=== PATIENT | female | born 1985 | race Caucasian/White ===

== ENCOUNTER → 2016-08-01 | Outpatient (CLI) | payer BC | END | disposition home or self-care (01) | LOC: LAB 07:41 | PROVIDERS: ATTEND Family Medicine Adult Medicine | DX: J06.9 Acute upper respiratory infection, unspecified (principal) | CPT/HCPCS: 87070 ==

== ENCOUNTER → 2016-08-03 | Outpatient (CLI) | payer BC ==
[2016-08-11 04:11] LABS: CHOCOLATE COCOA ALLERGEN < 0.10 kU/L (Class 0); WHEAT ALLERGEN < 0.10 kU/L (Class 0)
== END | disposition home or self-care (01) ==
LOC: LAB 13:09
PROVIDERS: ATTEND Family Medicine Adult Medicine
DX: J06.9 Acute upper respiratory infection, unspecified (principal); T78.40XA Allergy, unspecified, initial encounter
CPT/HCPCS: 86003; 86005

== ENCOUNTER → 2016-11-02 | Outpatient (CLI) | payer BC ==
[2016-11-02 14:16] LABS: EOSINOPHILS % 0.9 % (0.0-5.0); HEMATOCRIT. 41.1 % (36.0-48.0); HEMOGLOBIN. 14.1 g/dL (12.0-16.0); LYMPHOCYTES % 19.9 % (20.0-50.0); MEAN CORPUSCULAR HEMOGLOBIN 30.8 pg (28.0-32.0); MEAN CORPUSCULAR VOLUME 89.8 fL (81.0-99.0); MEAN PLATELET VOLUME 9.8 fl (7.4-10.4); MONOCYTES % 7.2 % (2.0-8.0); PLATELET 242 x1000/uL (130-400); RED BLOOD CELL COUNT 4.58 mill/uL (4.2-5.4); RED CELL DISTRIBUTION WIDTH 13.4 % (11.6-14.6)
[2016-11-02 14:21] LABS: CHLORIDE 101 mEq/L (98-107)
[2016-11-02 14:38] LABS: CARBON DIOXIDE 27 mEq/L (21-32); T4 FREE 1.09 ng/dL (0.76-1.46)
[2016-11-02 15:27] LABS: VITAMIN B12 SERUM 454 pg/mL (211-911)
== END | disposition home or self-care (01) ==
LOC: LAB 13:47
PROVIDERS: ATTEND Family Medicine Adult Medicine
DX: R19.7 Diarrhea, unspecified (principal); R05 Cough; R10.9 Unspecified abdominal pain; R53.83 Other fatigue
CPT/HCPCS: 36415; 80048; 82607; 83735; 84439; 84443; 85025; 85651; 86038

== ENCOUNTER → 2017-01-17 | Outpatient (CLI) | payer BC ==
[2017-01-17 14:15] LABS: HEPATITIS B SURFACE AB 808.5 mIU/mL
[2017-01-19 09:08] LABS: VITAMIN D 25-OH 28.1 ng/mL (30.0-100.0)
[2017-01-22 04:20] LABS: HSV 1 & 2 AB IGM <0.91 Ratio (0.00-0.90)
== END | disposition home or self-care (01) ==
LOC: LAB 08:30
PROVIDERS: ATTEND Family Medicine Adult Medicine
DX: Z20.2 Contact with and (suspected) exposure to infections with a predominantly sexual mode of transmission (principal); R53.83 Other fatigue
CPT/HCPCS: 36415; 82306; 83036; 84443; 86592; 86694; 86695; 86696; 86706; 86803

== ENCOUNTER → 2017-04-16 | Outpatient (CLI) | payer BC ==
[2017-04-16 13:03] LABS: BASOPHILS % 0.9 % (0.0-2.0); EOSINOPHILS % 0.4 % (0.0-5.0); HEMATOCRIT. 40.1 % (36.0-48.0); HEMOGLOBIN. 13.7 g/dL (12.0-16.0); LYMPHOCYTES % 15.6 % (20.0-50.0); MEAN CORPUSCULAR HEMOGLOBIN 30.7 pg (28.0-32.0); MEAN CORPUSCULAR VOLUME 89.7 fL (81.0-99.0); MEAN PLATELET VOLUME 10.6 fl (7.4-10.4); MONOCYTES % 5.6 % (2.0-8.0); NEUTROPHILS % 77.5 % (40.0-76.0); PLATELET 201 x1000/uL (130-400); RED BLOOD CELL COUNT 4.47 mill/uL (4.2-5.4); RED CELL DISTRIBUTION WIDTH 12.9 % (11.6-14.6)
[2017-04-16 13:06] LABS: CLARITY URINE CLOUDY (CLEAR); COLOR URINE YELLOW (YELLOW); KETONES URINE NEGATIVE (NEGATIVE); LEUKOCYTE ESTERASE URINE NEGATIVE (NEGATIVE); NITRITE URINE NEGATIVE (NEGATIVE); OCCULT BLOOD URINE NEGATIVE (NEGATIVE); PH URINE 7.5 (4.5-8.0); PROTEIN URINE NEGATIVE (NEGATIVE); SPECIFIC GRAVITY URINE 1.022 (1.005-1.030); UROBILINOGEN URINE 0.2 E.U./dL (0.2-1.0)
[2017-04-16 14:02] LABS: T4 FREE 1.03 ng/dL (0.76-1.46)
[2017-04-16 14:17] LABS: HEPATITIS B SURFACE ANTIGEN NEGATIVE; RUBELLA IGG 11.8 IU/mL (4.99-10)
[2017-04-17 05:34] LABS: THYROID PEROXIDASE ANTIBODY 15 IU/mL (0-34)
[2017-04-17 09:05] LABS: HBSAG SCREEN Negative (Negative)
[2017-04-19 10:12] LABS: 25-HYDROXY VITAMIN D3 38 ng/mL (.)
[2017-04-19 13:16] LABS: HGB A 97.4 % (96.4-98.8); HGB A2 2.6 % (1.8-3.2); HGB SOLUBILITY Negative (Negative)
== END | disposition home or self-care (01) ==
LOC: LAB 12:10
PROVIDERS: ATTEND Obstetrics & Gynecology Obstetrics
DX: Z34.00 Encounter for supervision of normal first pregnancy, unspecified trimester (principal); Z3A.00 Weeks of gestation of pregnancy not specified
CPT/HCPCS: 36415; 81001; 82306; 82947; 83021; 84439; 85025; 85660; 86376; 86592; 86762; 86803; 86850; 86870; 86900; 87086; 87186; 87340

== ENCOUNTER 2017-05-03 17:54 | Inpatient (IN) | payer BC ==
[~2017-05-03] VITALS: Ht 157.5 cm; Wt 58.5 kg
[2017-05-03] MEDS ORDERED: ZOLPIDEM TARTRATE 5MG TABLET PO PRN (18:15)
[2017-05-03 19:15] VITALS: BP 116/73
[2017-05-03 23:00] VITALS: BP 109/63
[2017-05-04 06:00] VITALS: BP 100/58
[2017-05-04 09:42] VITALS: BP 102/68
== END 2017-05-04 11:45 | disposition home or self-care (01) | DRG 782 ==
LOC: 7EST PP/OB 17:54
PROVIDERS: ADMIT Obstetrics & Gynecology Obstetrics; ATTEND Obstetrics & Gynecology Obstetrics
DX: O46.91 Antepartum hemorrhage, unspecified, first trimester (principal); Z3A.13 13 weeks gestation of pregnancy; Z3A.14 14 weeks gestation of pregnancy
CPT/HCPCS: 76801

== ENCOUNTER 2017-05-28 18:29 | Observation (INO) | payer BC ==
[~2017-05-28] VITALS: Ht 157.5 cm; Wt 58.5 kg
[2017-05-28] MEDS ORDERED: PNV1TABL76 PO (18:44)
[2017-05-28] MEDS: LACTATED RINGERS 1,000 ML IV SCH ×2 (19:16→23:49)
[2017-05-28] MEDS: CEFAZOLIN 2,000 MG in DEXT 5% WATER 100 ML IV SCH (19:55)
[2017-05-28 19:58] LABS: CLARITY URINE CLEAR (CLEAR); COLOR URINE YELLOW (YELLOW); KETONES URINE TRACE (NEGATIVE); LEUKOCYTE ESTERASE URINE NEGATIVE (NEGATIVE); NITRITE URINE NEGATIVE (NEGATIVE); OCCULT BLOOD URINE NEGATIVE (NEGATIVE); PROTEIN URINE NEGATIVE (NEGATIVE); SPECIFIC GRAVITY URINE 1.008 (1.005-1.030); UROBILINOGEN URINE 0.2 E.U./dL (0.2-1.0)
[2017-05-28 21:15] VITALS: BP 125/79
[2017-05-29] VITALS: BP 125/79
[2017-05-29 04:00] VITALS: BP 95/51
[2017-05-29] MEDS: CEFAZOLIN 2,000 MG in DEXT 5% WATER 100 ML IV SCH (04:04)
[2017-05-29 08:02] VITALS: BP 105/67
[2017-05-29 09:21] VITALS: BP 105/67
== END 2017-05-29 09:30 | disposition home or self-care (01) ==
LOC: L&D 18:29 → 7EST PP/OB 21:00
PROVIDERS: ADMIT Obstetrics & Gynecology Obstetrics; ATTEND Obstetrics & Gynecology Obstetrics
DX: O26.892 Other specified pregnancy related conditions, second trimester (principal); R10.30 Lower abdominal pain, unspecified; Z3A.17 17 weeks gestation of pregnancy; Z80.3 Family history of malignant neoplasm of breast
CPT/HCPCS: 76805; 76817; 81003; 96361; 96365; 96375; 99281; G0378; J0690; J7120; 96360; J7060

== ENCOUNTER → 2017-08-09 | Outpatient (CLI) | payer BC ==
[~2017-08-09] MED LIST: PNV1TABL76 PO
== END | disposition home or self-care (01) ==
LOC: LAB 13:04
PROVIDERS: ATTEND Obstetrics & Gynecology Obstetrics
DX: Z34.92 Encounter for supervision of normal pregnancy, unspecified, second trimester (principal); Z3A.27 27 weeks gestation of pregnancy
CPT/HCPCS: 36415; 82947; 82950

== ENCOUNTER 2017-10-01 14:38 | Observation (INO) | payer BC ==
[~2017-10-01] VITALS: Ht 157.5 cm; Wt 66.7 kg
[2017-10-01] MEDS: LACTATED RINGERS 1,000 ML IV SCH ×2 (15:37→16:17)
[2017-10-01 15:49] LABS: CLARITY URINE CLEAR (CLEAR); COLOR URINE YELLOW (YELLOW); KETONES URINE NEGATIVE (NEGATIVE); LEUKOCYTE ESTERASE URINE 1+ (NEGATIVE); NITRITE URINE NEGATIVE (NEGATIVE); OCCULT BLOOD URINE NEGATIVE (NEGATIVE); PH URINE 6.5 (4.5-8.0); PROTEIN URINE NEGATIVE (NEGATIVE); SPECIFIC GRAVITY URINE 1.017 (1.005-1.030); UROBILINOGEN URINE 0.2 E.U./dL (0.2-1.0)
[2017-10-01] MEDS ORDERED: CEFTRIAXONE 1 G PREMIX 50 ML IV NR (17:00)
== END 2017-10-01 18:40 | disposition home or self-care (01) ==
LOC: L&D 14:38
PROVIDERS: ADMIT Obstetrics & Gynecology Obstetrics; ATTEND Obstetrics & Gynecology Obstetrics
DX: O62.9 Abnormality of forces of labor, unspecified (principal); O26.893 Other specified pregnancy related conditions, third trimester; R10.9 Unspecified abdominal pain; Z3A.35 35 weeks gestation of pregnancy
CPT/HCPCS: 76805; 76818; 81003; 87086; 96361; 96365; 99281; G0378; J0696; J7120; 96360

== ENCOUNTER 2017-10-30 06:19 | Inpatient (IN) | payer BC ==
[~2017-10-30] VITALS: Ht 157.5 cm; Wt 73.5 kg
[2017-10-30] MEDS ORDERED: MISOPROSTOL 200MCG TABLET VG SCH (06:45)
[2017-10-30] MEDS ORDERED: NALOXONE HCL 0.4 MG/ML 1ML VIAL IM PRN (06:45)
[2017-10-30] MEDS ORDERED: DEXT 5%/LR + PITOCIN 20UNITS/L 1,000 ML IV SCH ×2 (06:45→09:15)
[2017-10-30] MEDS ORDERED: CARBOPROST TROMETHAMINE 250 MCG/ML AMPUL IM PRN (06:45)
[2017-10-30] MEDS ORDERED: METHYLERGONOVINE MALEATE 0.2 MG/ML IM PRN (06:45)
[2017-10-30 07:08] LABS: BASOPHILS % 0.7 % (0.0-2.0); EOSINOPHILS % 0.8 % (0.0-5.0); HEMATOCRIT. 35.7 % (36.0-48.0); HEMOGLOBIN. 12.2 g/dL (12.0-16.0); LYMPHOCYTES % 19.7 % (20.0-50.0); MEAN CORPUSCULAR HEMOGLOBIN 28.8 pg (28.0-32.0); MEAN CORPUSCULAR VOLUME 84.5 fL (81.0-99.0); MONOCYTES % 7.4 % (2.0-8.0); NEUTROPHILS % 71.4 % (40.0-76.0); PLATELET 124 x1000/uL (130-400); RED BLOOD CELL COUNT 4.22 mill/uL (4.2-5.4); RED CELL DISTRIBUTION WIDTH 15.2 % (11.6-14.6)
[2017-10-30 07:17] LABS: INR 0.9; PARTIAL THROMBOPLASTIN TIME 26.4 sec (23.4-31.0); PROTHROMBIN TIME 9.7 sec (9.4-11.6)
[2017-10-30] MEDS: LACTATED RINGERS 1,000 ML IV SCH ×3 (07:18→21:19)
[2017-10-30 08:12] LABS: CLARITY URINE CLEAR (CLEAR); COLOR URINE YELLOW (YELLOW); KETONES URINE NEGATIVE (NEGATIVE); LEUKOCYTE ESTERASE URINE TRACE (NEGATIVE); NITRITE URINE NEGATIVE (NEGATIVE); OCCULT BLOOD URINE NEGATIVE (NEGATIVE); PH URINE 6.5 (4.5-8.0); PROTEIN URINE NEGATIVE (NEGATIVE); SPECIFIC GRAVITY URINE 1.007 (1.005-1.030); UROBILINOGEN URINE 0.2 E.U./dL (0.2-1.0)
[2017-10-30] MEDS ORDERED: FENTANYL CITRATE/PF 50MCG/ML 2ML VIAL ONE (08:32)
[2017-10-30] MEDS ORDERED: CEFAZOLIN 2000MG PREMIX 50 ML IV ONE (08:32)
[2017-10-30] MEDS ORDERED: PHENYLEPHRINE HCL 10 MG/ML 1ML (IV VIAL) IV ONE (08:32)
[2017-10-30] MEDS ORDERED: MORPHINE SULFATE/PF 1MG/ML 10ML AMP ONE (08:32)
[2017-10-30] MEDS ORDERED: EPHEDRINE SULFATE 50MG/ML VIAL ONE (08:32)
[2017-10-30] MEDS ORDERED: GLYCOPYRROLATE 0.2 MG/ML 2ML VIAL ONE (08:32)
[2017-10-30] MEDS ORDERED: OXYTOCIN 10 UNITS/ML 1ML ONE (08:32)
[2017-10-30] MEDS ORDERED: ONDANSETRON HCL 4MG/2ML VIAL ONE (08:32)
[2017-10-30] MEDS ORDERED: SODIUM CHLORIDE 0.9% 10ML VIAL ONE (08:35)
[2017-10-30] MEDS ORDERED: HYDROCODONE/ACETAMINOPHEN 5/325MG TABLET PO PRN (08:45)
[2017-10-30] MEDS ORDERED: OXYTOCIN 20 UNITS in LACTATED RINGERS 1,000 ML IV SCH (08:45)
[2017-10-30] MEDS ORDERED: CITRIC ACID/SODIUM CITRATE SOLN 30ML UDC PO SCH (09:00)
[2017-10-30 09:07] LABS: *AMPHETAMINES SCREEN URINE NEGATIVE (NEGATIVE); *BARBITURATES SCREEN URINE NEGATIVE (NEGATIVE); *BENZODIAZEPINES SCREEN URINE NEGATIVE (NEGATIVE); *COCAINE SCREEN URINE NEGATIVE (NEGATIVE)
[2017-10-30 09:08] LABS: CANNABINOID URINE SCREEN NEGATIVE (NEGATIVE); METHADONE URINE SCREEN NEGATIVE (NEGATIVE); OPIATES URINE SCREEN NEGATIVE (NEGATIVE); PHENCYCLIDINE URINE SCREEN NEGATIVE (NEGATIVE)
[2017-10-30 09:43] LABS: RUBELLA IGG 9.6 IU/mL (4.99-10)
[2017-10-30 09:44] LABS: HEPATITIS B SURFACE ANTIGEN NEGATIVE
[2017-10-30] MEDS ORDERED: ESMOLOL HCL 10MG/ML 10ML VIAL IV ONE (09:45)
[2017-10-30] MEDS ORDERED: DIPHENHYDRAMINE 50MG/ML VIAL ONE (09:57)
[2017-10-30] MEDS ORDERED: KETOROLAC 60MG/2ML VIAL IM ONE (10:06)
[2017-10-30] MEDS ORDERED: BUTORPHANOL TARTRATE 2 MG/ML VIAL IM PRN (10:45)
[2017-10-30] MEDS ORDERED: DIPHENHYDRAMINE 50MG/ML VIAL IV PRN (10:45)
[2017-10-30] MEDS ORDERED: BUTORPHANOL TARTRATE 2 MG/ML VIAL IV PRN (10:45)
[2017-10-30] MEDS ORDERED: NALOXONE HCL 0.4 MG/ML 1ML VIAL IV PRN (10:45)
[2017-10-30] MEDS ORDERED: ONDANSETRON HCL 4MG/2ML VIAL IV PRN (10:45)
[2017-10-30 13:30] VITALS: BP 104/55
[2017-10-30 14:00] VITALS: BP 100/55
[2017-10-30] MEDS ORDERED: MORPHINE SULFATE 4 MG/ML CPJ (NOT FOR IM USE) IV PRN (17:00)
[2017-10-30 19:56] VITALS: BP 129/77
[2017-10-30] MEDS ORDERED: LANOLIN OINT 0.25 GM TUBE TOP PRN (20:45)
[2017-10-30] MEDS: MORPHINE SULFATE 4 MG/ML CPJ (NOT FOR IM USE) IV PRN (21:07)
[2017-10-31] MEDS: MORPHINE SULFATE 4 MG/ML CPJ (NOT FOR IM USE) IV PRN (04:48)
[2017-10-31] MEDS: LACTATED RINGERS 1,000 ML IV SCH (04:49)
[2017-10-31 05:08] VITALS: BP 115/72
[2017-10-31 07:03] LABS: BASOPHILS % 0.3 % (0.0-2.0); EOSINOPHILS % 0.2 % (0.0-5.0); HEMATOCRIT. 33.9 % (36.0-48.0); HEMOGLOBIN. 11.3 g/dL (12.0-16.0); LYMPHOCYTES % 9.6 % (20.0-50.0); MEAN CORPUSCULAR HEMOGLOBIN 28.7 pg (28.0-32.0); MEAN CORPUSCULAR VOLUME 86.4 fL (81.0-99.0); MEAN PLATELET VOLUME 11.9 fl (7.4-10.4); MONOCYTES % 5.1 % (2.0-8.0); NEUTROPHILS % 84.8 % (40.0-76.0); PLATELET 113 x1000/uL (130-400); RED BLOOD CELL COUNT 3.92 mill/uL (4.2-5.4); RED CELL DISTRIBUTION WIDTH 15.1 % (11.6-14.6)
[2017-10-31 07:35] VITALS: BP 121/69
[2017-10-31] MEDS: HYDROCODONE/ACETAMINOPHEN 5/325MG TABLET PO PRN ×4 (09:42→21:01)
[2017-10-31 15:51] VITALS: BP 115/65
[2017-10-31 16:45] VITALS: BP 115/65
[2017-10-31 21:30] VITALS: BP 131/72
[2017-10-31] MEDS ORDERED: DOCUSATE SODIUM 100MG CAPSULE PO SCH (22:00)
[2017-11-01] MEDS: IBUPROFEN 400MG TABLET PO PRN ×2 (00:47→09:06)
[2017-11-01 05:30] VITALS: BP 124/71
[2017-11-01 08:20] VITALS: BP 104/67
[2017-11-01] MEDS ORDERED: BETHANECHOL CHLORIDE 25 MG TABLET PO STA (08:38)
[2017-11-01] MEDS: BETHANECHOL CHLORIDE 25 MG TABLET PO SCH ×3 (09:07→16:48)
[2017-11-01] MEDS: DOCUSATE SODIUM 100MG CAPSULE PO SCH ×2 (09:07→16:49)
[2017-11-01] MEDS ORDERED: BISACODYL 10MG SUPP PR NR (10:00)
[2017-11-01 16:20] VITALS: BP 114/77
[2017-11-01] MEDS: IBUPROFEN 800MG TABLET PO PRN (16:48)
[2017-11-01 21:30] VITALS: BP 125/80
[2017-11-01] MEDS: HYDROCODONE/ACETAMINOPHEN 5/325MG TABLET PO PRN (21:44)
[2017-11-02] MEDS: HYDROCODONE/ACETAMINOPHEN 5/325MG TABLET PO PRN (03:14)
[2017-11-02 05:50] VITALS: BP 130/77
[2017-11-02] MEDS ORDERED: TETANUS, DIPHTHERIA, PERTUSSIS VAC/PF 0.5ML (>7YR OLD) IM ONE (06:00)
[2017-11-02 08:41] VITALS: BP 130/77
[2017-11-02] MEDS: IBUPROFEN 800MG TABLET PO PRN (08:41)
[2017-11-02] MEDS ORDERED: BISACODYL 10MG SUPP PR PRN (09:00)
[2017-11-02] MEDS: BETHANECHOL CHLORIDE 25 MG TABLET PO SCH (09:00)
== END 2017-11-02 12:15 | disposition home or self-care (01) | DRG 765 ==
LOC: OBSVTOIN 06:19 → L&D 06:19 → 7EST PP/OB 13:47
PROVIDERS: ADMIT Obstetrics & Gynecology Obstetrics; ATTEND Obstetrics & Gynecology Obstetrics
PROC: 10D00Z1 Extraction of Products of Conception, Low, Open Approach (ICD-10-PCS; principal; 2017-10-30 10:25)
DX: O34.211 Maternal care for low transverse scar from previous cesarean delivery (principal); K56.7 Ileus, unspecified; Z3A.39 39 weeks gestation of pregnancy; O99.63 Diseases of the digestive system complicating the puerperium; Z37.0 Single live birth; Z82.49 Family history of ischemic heart disease and other diseases of the circulatory system; Z83.3 Family history of diabetes mellitus; Z80.8 Family history of malignant neoplasm of other organs or systems; Z79.899 Other long term (current) drug therapy
CPT/HCPCS: 36415; 80305; 81003; 84030; 85025; 85610; 85730; 86592; 86703; 86762; 86850; 86886; 86900; 87340; 88307; 90384; 90715; A4216; J0595; J0690; J1200; J1885; J2270; J2274; J2370; J2405; J2590; J3010; J3490; J7120; A4315

== ENCOUNTER 2017-11-05 12:28 | Emergency (ER) | payer BC ==
[~2017-11-05] VITALS: Ht 157.5 cm; Wt 61.0 kg
[2017-11-05] MEDS ORDERED: ONDANSETRON HCL 4MG/2ML VIAL IV STA (12:59)
[2017-11-05] MEDS ORDERED: SODIUM CHLORIDE 0.9% 1,000 ML IV ONE ×2 (12:59→15:33)
[2017-11-05] MEDS ORDERED: CAFFEINE 200MG TABLET PO ONE (13:15)
[2017-11-05 13:31] LABS: BASOPHILS % 0.3 % (0.0-2.0); EOSINOPHILS % 0.3 % (0.0-5.0); HEMATOCRIT. 36.3 % (36.0-48.0); LYMPHOCYTES % 7.9 % (20.0-50.0); MEAN CORPUSCULAR HEMOGLOBIN 28.2 pg (28.0-32.0); MEAN CORPUSCULAR VOLUME 85.2 fL (81.0-99.0); MEAN PLATELET VOLUME 10.7 fl (7.4-10.4); MONOCYTES % 3.7 % (2.0-8.0); NEUTROPHILS % 87.8 % (40.0-76.0); PLATELET 248 x1000/uL (130-400); RED BLOOD CELL COUNT 4.26 mill/uL (4.2-5.4); RED CELL DISTRIBUTION WIDTH 15.5 % (11.6-14.6)
[2017-11-05 13:35] LABS: CHLORIDE 105 mEq/L (98-107)
[2017-11-05 13:38] LABS: PARTIAL THROMBOPLASTIN TIME 26.4 sec (23.4-31.0); PROTHROMBIN TIME 10.1 sec (9.1-11.1)
[2017-11-05] MEDS ORDERED: KETOROLAC 30MG/ML VIAL IV ONE (13:45)
[2017-11-05] MEDS ORDERED: MORPHINE SULFATE 2 MG/ML CPJ (NOT FOR IM USE) IV ONE ×2 (15:45→16:45)
[2017-11-05 16:23] LABS: CLARITY URINE CLEAR (CLEAR); COLOR URINE YELLOW (YELLOW); KETONES URINE NEGATIVE (NEGATIVE); LEUKOCYTE ESTERASE URINE TRACE (NEGATIVE); NITRITE URINE NEGATIVE (NEGATIVE); OCCULT BLOOD URINE 3+ (NEGATIVE); PH URINE 6.5 (4.5-8.0); PROTEIN URINE NEGATIVE (NEGATIVE); SPECIFIC GRAVITY URINE 1.013 (1.005-1.030); UROBILINOGEN URINE 0.2 E.U./dL (0.2-1.0)
[2017-11-05] MEDS ORDERED: ACETAMINOPHEN 325MG TABLET PO ONE (16:45)
[2017-11-05] MEDS ORDERED: HYDRALAZINE 20MG/ML VIAL IV ONE (17:15)
[2017-11-05] MEDS ORDERED: LABETALOL HCL 100MG TABLET PO ONE (19:15)
[2017-11-05] MEDS ORDERED: ONDANSETRON HCL 4MG/2ML VIAL IV ONE (19:15)
[2017-11-05 22:43] VITALS: BP 130/75
== END 2017-11-05 22:45 | disposition home or self-care (01) ==
LOC: ER 12:43
DX: G97.1 Other reaction to spinal and lumbar puncture (principal); R11.2 Nausea with vomiting, unspecified; I10 Essential (primary) hypertension; Z98.890 Other specified postprocedural states
CPT/HCPCS: 36415; 70450; 80053; 81003; 84484; 85025; 85610; 85730; 96361; 96374; 96375; 96376; 99285; J0360; J1885; J2270; J2405; J7030; Z7610

== ENCOUNTER → 2018-04-14 | Outpatient (CLI) | payer BC ==
[2018-04-14 08:29] LABS: EOSINOPHILS % 0.4 % (0.0-5.0); HEMATOCRIT. 41.1 % (36.0-48.0); LYMPHOCYTES % 12.5 % (20.0-50.0); MEAN CORPUSCULAR HEMOGLOBIN 30.6 pg (28.0-32.0); MEAN CORPUSCULAR VOLUME 89.6 fL (81.0-99.0); MEAN PLATELET VOLUME 10.3 fl (7.4-10.4); MONOCYTES % 5.7 % (2.0-8.0); NEUTROPHILS % 80.4 % (40.0-76.0); PLATELET 218 x1000/uL (130-400); RED BLOOD CELL COUNT 4.59 mill/uL (4.2-5.4)
[2018-04-14 09:08] LABS: CHLORIDE 104 mEq/L (98-107)
[2018-04-14 09:17] LABS: LDL CHOLESTEROL 76 mg/dL (5-100)
[2018-04-14 09:19] LABS: HDL CHOLESTEROL 88 mg/dL (40-59)
== END | disposition home or self-care (01) ==
LOC: LAB 07:45
PROVIDERS: ATTEND Family Medicine Adult Medicine
DX: O26.891 Other specified pregnancy related conditions, first trimester (principal); R10.2 Pelvic and perineal pain; R11.0 Nausea; Z3A.01 Less than 8 weeks gestation of pregnancy
CPT/HCPCS: 36415; 80048; 80061; 82306; 83036

== ENCOUNTER → 2018-05-14 | Outpatient (CLI) | payer BC ==
[2018-05-14 11:45] LABS: T4 FREE 1.01 ng/dL (0.76-1.46)
[2018-05-14 12:43] LABS: HEPATITIS B SURFACE ANTIGEN NEGATIVE
[2018-05-14 13:13] LABS: HEPATITIS A AB IGM NEGATIVE (NEGATIVE)
[2018-05-15 08:19] LABS: HIV SCREEN 4G Non Reactive (Non Reactive)
[2018-05-17 17:09] LABS: 25-HYDROXY VITAMIN D3 32 ng/mL (.)
== END | disposition home or self-care (01) ==
LOC: LAB 09:55
PROVIDERS: ATTEND Obstetrics & Gynecology Obstetrics
DX: Z34.00 Encounter for supervision of normal first pregnancy, unspecified trimester (principal); Z3A.00 Weeks of gestation of pregnancy not specified
CPT/HCPCS: 36415; 82306; 82947; 83036; 84439; 86592; 86705; 86709; 86762; 86803; 87340; 87389

== ENCOUNTER → 2018-08-11 | Outpatient (CLI) | payer BC ==
[2018-08-11 13:00] LABS: CLARITY URINE CLEAR (CLEAR); COLOR URINE YELLOW (YELLOW); KETONES URINE NEGATIVE (NEGATIVE); LEUKOCYTE ESTERASE URINE NEGATIVE (NEGATIVE); NITRITE URINE NEGATIVE (NEGATIVE); OCCULT BLOOD URINE NEGATIVE (NEGATIVE); PROTEIN URINE NEGATIVE (NEGATIVE); SPECIFIC GRAVITY URINE 1.018 (1.005-1.030); UROBILINOGEN URINE 0.2 E.U./dL (0.2-1.0)
== END | disposition home or self-care (01) ==
LOC: LAB 12:37
PROVIDERS: ATTEND Obstetrics & Gynecology Obstetrics
DX: N39.0 Urinary tract infection, site not specified (principal)

== ENCOUNTER → 2018-09-04 | Outpatient (CLI) | payer BC ==
[~2018-09-04] MED LIST changes: +PNV1TABL50 PO; -PNV1TABL76 PO
== END | disposition home or self-care (01) ==
LOC: LAB 12:20
PROVIDERS: ATTEND Obstetrics & Gynecology Obstetrics
DX: O24.019 Pre-existing type 1 diabetes mellitus, in pregnancy, unspecified trimester (principal); Z3A.00 Weeks of gestation of pregnancy not specified
CPT/HCPCS: 36415; 82947; 82950

== ENCOUNTER 2018-09-19 10:05 | Observation (INO) | payer BC ==
[~2018-09-19] VITALS: Ht 157.5 cm; Wt 68.0 kg
[2018-09-19] MEDS ORDERED: PNV1TABL50 PO (13:18)
[2018-09-19 13:28] VITALS: BP 110/63
== END 2018-09-19 14:00 | disposition home or self-care (01) ==
LOC: L&DPROCDR 10:05 → LAB 10:05 → 8 EST LDRP 11:30 → EEVIPCON 11:30
PROVIDERS: ADMIT Obstetrics & Gynecology Obstetrics; ATTEND Obstetrics & Gynecology Obstetrics
DX: O99.810 Abnormal glucose complicating pregnancy (principal); O36.0190 Maternal care for anti-D [Rh] antibodies, unspecified trimester, not applicable or unspecified; Z3A.00 Weeks of gestation of pregnancy not specified
CPT/HCPCS: 36415; 82951; 86850; 86900; 86901; 90384; 96372; G0378

== ENCOUNTER 2018-10-23 22:46 | Observation (INO) | payer BC ==
[~2018-10-23] VITALS: Ht 157.5 cm; Wt 68.0 kg
[2018-10-23] MEDS ORDERED: BETAMETHASONE ACET/BETAMET 30 MG/5 ML VIAL IM NR (23:30)
[2018-10-23] MEDS: LACTATED RINGERS 1,000 ML IV SCH (23:41)
[2018-10-23] MEDS: TERBUTALINE SULFATE 1MG/ML VIAL SUBCUT PRN (23:51)
[2018-10-23 23:59] LABS: BASOPHILS % 0.3 % (0.0-2.0); EOSINOPHILS % 0.9 % (0.0-5.0); HEMATOCRIT. 38.2 % (36.0-48.0); HEMOGLOBIN. 13.2 g/dL (12.0-16.0); LYMPHOCYTES % 15.3 % (20.0-50.0); MEAN CORPUSCULAR HEMOGLOBIN 31.6 pg (28.0-32.0); MEAN CORPUSCULAR VOLUME 91.4 fL (81.0-99.0); MEAN PLATELET VOLUME 11.2 fl (7.4-10.4); MONOCYTES % 8.2 % (2.0-8.0); NEUTROPHILS % 75.3 % (40.0-76.0); PLATELET 138 x1000/uL (130-400); RED BLOOD CELL COUNT 4.18 mill/uL (4.2-5.4); RED CELL DISTRIBUTION WIDTH 14.5 % (11.6-14.6)
[2018-10-24] LABS: CLARITY URINE CLOUDY (CLEAR); COLOR URINE YELLOW (YELLOW); KETONES URINE TRACE (NEGATIVE); LEUKOCYTE ESTERASE URINE 1+ (NEGATIVE); NITRITE URINE NEGATIVE (NEGATIVE); OCCULT BLOOD URINE NEGATIVE (NEGATIVE); PROTEIN URINE TRACE (NEGATIVE); SPECIFIC GRAVITY URINE 1.034 (1.005-1.030)
[2018-10-24] MEDS: TERBUTALINE SULFATE 1MG/ML VIAL SUBCUT PRN ×2 (00:27→01:48)
[2018-10-24] MEDS: LACTATED RINGERS 1,000 ML IV SCH (01:14)
== END 2018-10-24 03:36 | disposition home or self-care (01) ==
LOC: 8 EST LDRP 22:46
PROVIDERS: ADMIT Obstetrics & Gynecology Obstetrics; ATTEND Obstetrics & Gynecology Obstetrics
DX: O26.893 Other specified pregnancy related conditions, third trimester (principal); R10.30 Lower abdominal pain, unspecified; O24.410 Gestational diabetes mellitus in pregnancy, diet controlled; Z3A.33 33 weeks gestation of pregnancy
CPT/HCPCS: 36415; 76805; 76818; 81003; 85025; 96372; 99281; G0378; J0702; J3105; 96360; 96361

== ENCOUNTER 2018-10-24 11:51 | Observation (INO) | payer BC ==
[2018-10-24] MEDS ORDERED: BETAMETHASONE ACET/BETAMET 30 MG/5 ML VIAL IM SCH (12:15)
== END 2018-10-24 12:45 | disposition home or self-care (01) ==
LOC: 8 EST LDRP 11:51
PROVIDERS: ADMIT Obstetrics & Gynecology Obstetrics; ATTEND Obstetrics & Gynecology Obstetrics
DX: Z34.93 Encounter for supervision of normal pregnancy, unspecified, third trimester (principal); Z3A.33 33 weeks gestation of pregnancy
CPT/HCPCS: 96372; G0378

== ENCOUNTER 2018-10-31 14:55 | Observation (INO) | payer BC | END 2018-10-31 16:30 | disposition home or self-care (01) | LOC: 8 EST LDRP 14:55 | PROVIDERS: ADMIT Obstetrics & Gynecology Obstetrics; ATTEND Obstetrics & Gynecology Obstetrics | DX: O24.410 Gestational diabetes mellitus in pregnancy, diet controlled (principal); Z3A.34 34 weeks gestation of pregnancy | CPT/HCPCS: 99281; G0378 ==

== ENCOUNTER 2018-11-07 15:11 | Observation (INO) | payer BC ==
[~2018-11-07] VITALS: Ht 157.5 cm; Wt 64.0 kg
[2018-11-07 15:40] LABS: BASOPHILS % 0.5 % (0.0-2.0); EOSINOPHILS % 0.4 % (0.0-5.0); HEMATOCRIT. 41.4 % (36.0-48.0); HEMOGLOBIN. 14.4 g/dL (12.0-16.0); LYMPHOCYTES % 11.9 % (20.0-50.0); MEAN CORPUSCULAR HEMOGLOBIN 31.4 pg (28.0-32.0); MEAN CORPUSCULAR VOLUME 90.5 fL (81.0-99.0); MEAN PLATELET VOLUME 10.9 fl (7.4-10.4); MONOCYTES % 4.5 % (2.0-8.0); NEUTROPHILS % 82.7 % (40.0-76.0); PLATELET 137 x1000/uL (130-400); RED BLOOD CELL COUNT 4.57 mill/uL (4.2-5.4); RED CELL DISTRIBUTION WIDTH 15.3 % (11.6-14.6)
[2018-11-07 16:01] LABS: CLARITY URINE CLEAR (CLEAR); COLOR URINE YELLOW (YELLOW); KETONES URINE 2+ (NEGATIVE); LEUKOCYTE ESTERASE URINE NEGATIVE (NEGATIVE); NITRITE URINE NEGATIVE (NEGATIVE); OCCULT BLOOD URINE NEGATIVE (NEGATIVE); PH URINE 5.5 (4.5-8.0); PROTEIN URINE NEGATIVE (NEGATIVE); SPECIFIC GRAVITY URINE 1.019 (1.005-1.030); UROBILINOGEN URINE 0.2 E.U./dL (0.2-1.0)
== END 2018-11-07 16:40 | disposition home or self-care (01) ==
LOC: LAB 15:11 → 8 EST A/PP 15:12
PROVIDERS: ADMIT Obstetrics & Gynecology Obstetrics; ATTEND Obstetrics & Gynecology Obstetrics
DX: O24.410 Gestational diabetes mellitus in pregnancy, diet controlled (principal); O23.33 Infections of other parts of urinary tract in pregnancy, third trimester; R53.83 Other fatigue; Z3A.00 Weeks of gestation of pregnancy not specified
CPT/HCPCS: 36415; 59025; 81003; 83036; 85025; 87086; G0378

== ENCOUNTER 2018-11-14 10:54 | Observation (INO) | payer BC ==
[~2018-11-14] VITALS: Ht 157.5 cm; Wt 64.9 kg
== END 2018-11-14 13:01 | disposition home or self-care (01) ==
LOC: RAD 10:54 → OB TRIAGE 11:38
PROVIDERS: ADMIT Obstetrics & Gynecology Obstetrics; ATTEND Obstetrics & Gynecology Obstetrics
DX: O62.9 Abnormality of forces of labor, unspecified (principal); O36.8331 Maternal care for abnormalities of the fetal heart rate or rhythm, third trimester, fetus 1; Z3A.36 36 weeks gestation of pregnancy
CPT/HCPCS: 59025; G0378

== ENCOUNTER 2018-11-21 03:18 | Inpatient (IN) | payer BC ==
[~2018-11-21] VITALS: Ht 157.5 cm; Wt 64.9 kg
[2018-11-21] MEDS: LACTATED RINGERS 1,000 ML IV SCH ×2 (03:50→04:38)
[2018-11-21] MEDS ORDERED: METHYLERGONOVINE MALEATE 0.2 MG/ML IM PRN (04:15)
[2018-11-21] MEDS ORDERED: NALOXONE HCL 0.4 MG/ML 1ML VIAL IM PRN (04:15)
[2018-11-21] MEDS ORDERED: TERBUTALINE SULFATE 1MG/ML VIAL SUBCUT NR (04:15)
[2018-11-21] MEDS ORDERED: TERBUTALINE SULFATE 1MG/ML VIAL ONE (04:22)
[2018-11-21 04:37] LABS: BASOPHILS % 0.3 % (0.0-2.0); EOSINOPHILS % 0.4 % (0.0-5.0); HEMATOCRIT. 41.1 % (36.0-48.0); HEMOGLOBIN. 14.1 g/dL (12.0-16.0); LYMPHOCYTES % 13.8 % (20.0-50.0); MEAN CORPUSCULAR VOLUME 90.6 fL (81.0-99.0); NEUTROPHILS % 80.5 % (40.0-76.0); PLATELET 139 x1000/uL (130-400); RED BLOOD CELL COUNT 4.54 mill/uL (4.2-5.4); RED CELL DISTRIBUTION WIDTH 15.4 % (11.6-14.6)
[2018-11-21 04:41] LABS: INR 0.9; PARTIAL THROMBOPLASTIN TIME 28.6 sec (23.4-31.0); PROTHROMBIN TIME 9.8 sec (9.6-11.0)
[2018-11-21] MEDS ORDERED: IBUPROFEN 400MG TABLET PO PRN (05:15)
[2018-11-21 05:17] LABS: HEPATITIS B SURFACE ANTIGEN NEGATIVE
[2018-11-21] MEDS ORDERED: CITRIC ACID/SODIUM CITRATE SOLN 30ML UDC PO NR (05:45)
[2018-11-21] MEDS ORDERED: BISACODYL 10MG SUPP PR PRN (05:45)
[2018-11-21] MEDS ORDERED: ONDANSETRON HCL 4MG/2ML INJ IV PRN (07:15)
[2018-11-21] MEDS ORDERED: MEPERIDINE HCL/PF 25MG/ML CPJ IV PRN (07:15)
[2018-11-21] MEDS ORDERED: DIPHENHYDRAMINE 50MG/ML VIAL IV PRN (07:15)
[2018-11-21] MEDS ORDERED: METOCLOPRAMIDE HCL 10MG/2ML VIAL IV PRN (07:15)
[2018-11-21] MEDS ORDERED: KETOROLAC 30MG/ML VIAL IV PRN (07:15)
[2018-11-21] MEDS: DEXT 5%/LR + PITOCIN 20UNITS/L 1,000 ML IV SCH ×3 (07:54→23:14)
[2018-11-21] MEDS ORDERED: OXYTOCIN 20 UNITS in LACTATED RINGERS 1,000 ML IV SCH (08:00)
[2018-11-21 10:00] VITALS: BP 94/49
[2018-11-21 10:31] LABS: CLARITY URINE CLEAR (CLEAR); COLOR URINE YELLOW (YELLOW); KETONES URINE 1+ (NEGATIVE); LEUKOCYTE ESTERASE URINE TRACE (NEGATIVE); NITRITE URINE NEGATIVE (NEGATIVE); OCCULT BLOOD URINE 3+ (NEGATIVE); PH URINE 6.5 (4.5-8.0); PROTEIN URINE NEGATIVE (NEGATIVE); SPECIFIC GRAVITY URINE 1.004 (1.005-1.030); UROBILINOGEN URINE 0.2 E.U./dL (0.2-1.0)
[2018-11-21 11:09] LABS: *AMPHETAMINES SCREEN URINE NEGATIVE (NEGATIVE); *BARBITURATES SCREEN URINE NEGATIVE (NEGATIVE); *BENZODIAZEPINES SCREEN URINE NEGATIVE (NEGATIVE); *COCAINE SCREEN URINE NEGATIVE (NEGATIVE)
[2018-11-21 11:10] LABS: CANNABINOID URINE SCREEN NEGATIVE (NEGATIVE); METHADONE URINE SCREEN NEGATIVE (NEGATIVE); OPIATES URINE SCREEN NEGATIVE (NEGATIVE); PHENCYCLIDINE URINE SCREEN NEGATIVE (NEGATIVE)
[2018-11-21 16:00] VITALS: BP 98/58
[2018-11-21 20:00] VITALS: BP 96/48
[2018-11-21] MEDS ORDERED: DOCUSATE SODIUM 100MG CAPSULE PO SCH (21:00)
[2018-11-22] MEDS: KETOROLAC 30MG/ML VIAL IV PRN ×2 (01:47→08:10)
[2018-11-22 04:00] VITALS: BP 97/52
[2018-11-22 07:54] LABS: BASOPHILS % 0.3 % (0.0-2.0); EOSINOPHILS % 1.1 % (0.0-5.0); HEMATOCRIT. 38.1 % (36.0-48.0); HEMOGLOBIN. 13.1 g/dL (12.0-16.0); LYMPHOCYTES % 7.3 % (20.0-50.0); MEAN CORPUSCULAR HEMOGLOBIN 31.3 pg (28.0-32.0); MEAN CORPUSCULAR VOLUME 91.3 fL (81.0-99.0); MEAN PLATELET VOLUME 10.9 fl (7.4-10.4); MONOCYTES % 5.1 % (2.0-8.0); NEUTROPHILS % 86.2 % (40.0-76.0); PLATELET 109 x1000/uL (130-400); RED BLOOD CELL COUNT 4.18 mill/uL (4.2-5.4); RED CELL DISTRIBUTION WIDTH 15.6 % (11.6-14.6)
[2018-11-22 08:00] VITALS: BP 98/52
[2018-11-22] MEDS: HYDROCODONE/ACETAMINOPHEN 5/325MG TABLET PO PRN ×2 (14:32→20:50)
[2018-11-22 17:00] VITALS: BP 100/64
[2018-11-22 19:30] VITALS: BP 104/64
[2018-11-22] MEDS ORDERED: RHO(D) IMMUNE GLOBULIN 300 MCG/SYR IM NR (21:30)
[2018-11-23 04:20] VITALS: BP 116/65
[2018-11-23] MEDS: HYDROCODONE/ACETAMINOPHEN 5/325MG TABLET PO PRN ×3 (04:25→13:26)
[2018-11-23] MEDS ORDERED: TETANUS, DIPHTHERIA, PERTUSSIS VAC/PF 0.5ML (>7YR OLD) IM ONE (08:00)
[2018-11-23 10:00] VITALS: BP 108/58
[2018-11-23] MEDS ORDERED: MEASLES,MUMPS&RUBELLA VACCINE 1 VIAL SUBCUT ONE (16:00)
== END 2018-11-23 15:30 | disposition home or self-care (01) | DRG 785 ==
LOC: 8 EST LDRP 03:18 → OBSVTOIN 03:18 → 8 EST LDRP 09:36
PROVIDERS: ADMIT Obstetrics & Gynecology Obstetrics; ATTEND Obstetrics & Gynecology Obstetrics
PROC: 10D00Z1 Extraction of Products of Conception, Low, Open Approach (ICD-10-PCS; principal; 2018-11-21)
PROC: 0UT70ZZ Resection of Bilateral Fallopian Tubes, Open Approach (ICD-10-PCS; 2018-11-21)
PROC: 30233S1 Transfusion of Nonautologous Globulin into Peripheral Vein, Percutaneous Approach (ICD-10-PCS; 2018-11-22)
DX: O34.211 Maternal care for low transverse scar from previous cesarean delivery (principal); Z37.0 Single live birth; Z3A.37 37 weeks gestation of pregnancy; Z30.2 Encounter for sterilization
CPT/HCPCS: 36415; 80305; 81003; 82947; 86592; 86703; 86762; 86850; 86886; 86900; 87340; 88302; 88307; 90384; 90707; 90715; 99281; G0378; J0690; J1200; J1885; J2274; J2405; J2590; J2765; J3010; J3105; J7120

== ENCOUNTER → 2019-01-13 | Outpatient (CLI) | payer BC | END | disposition home or self-care (01) | LOC: LAB 08:13 | PROVIDERS: ATTEND Obstetrics & Gynecology Obstetrics | DX: O24.439 Gestational diabetes mellitus in the puerperium, unspecified control (principal); Z3A.00 Weeks of gestation of pregnancy not specified | CPT/HCPCS: 36415; 82951 ==

== ENCOUNTER → 2019-08-11 | Outpatient (CLI) | payer BC ==
[2019-08-11 08:20] LABS: BASOPHILS % 1.1 % (0.0-2.0); HEMATOCRIT. 42.6 % (36.0-48.0); HEMOGLOBIN. 14.7 g/dL (12.0-16.0); LYMPHOCYTES % 20.4 % (20.0-50.0); MEAN CORPUSCULAR HEMOGLOBIN 32.4 pg (28.0-32.0); MEAN CORPUSCULAR VOLUME 93.4 fL (81.0-99.0); MEAN PLATELET VOLUME 10.5 fl (7.4-10.4); MONOCYTES % 7.5 % (2.0-8.0); PLATELET 204 x1000/uL (130-400); RED BLOOD CELL COUNT 4.56 mill/uL (4.2-5.4); RED CELL DISTRIBUTION WIDTH 13.5 % (11.6-14.6)
[2019-08-11 08:24] LABS: CHLORIDE 106 mEq/L (98-107)
[2019-08-11 08:31] LABS: LDL CHOLESTEROL 93 mg/dL (5-100)
[2019-08-11 08:32] LABS: HDL CHOLESTEROL 92 mg/dL (40-59)
[2019-08-11 09:01] LABS: CLARITY URINE CLEAR (CLEAR); COLOR URINE YELLOW (YELLOW); KETONES URINE NEGATIVE (NEGATIVE); LEUKOCYTE ESTERASE URINE 1+ (NEGATIVE); NITRITE URINE NEGATIVE (NEGATIVE); OCCULT BLOOD URINE NEGATIVE (NEGATIVE); PROTEIN URINE NEGATIVE (NEGATIVE); SPECIFIC GRAVITY URINE 1.021 (1.005-1.030); UROBILINOGEN URINE 0.2 E.U./dL (0.2-1.0)
== END | disposition home or self-care (01) ==
LOC: LAB 07:25
PROVIDERS: ATTEND Family Medicine Adult Medicine
DX: E55.9 Vitamin D deficiency, unspecified (principal); E78.49 Other hyperlipidemia; R53.83 Other fatigue; R00.0 Tachycardia, unspecified; Z83.3 Family history of diabetes mellitus; R73.03 Prediabetes
CPT/HCPCS: 36415; 80053; 80061; 81003; 82306; 83036; 84443; 85025

== ENCOUNTER → 2021-02-17 | Outpatient (CLI) | payer BC ==
[2021-02-17 07:47] LABS: BASOPHILS % 1.1 % (0.0-2.0); EOSINOPHILS % 1.9 % (0.0-5.0); HEMATOCRIT. 41.8 % (36.0-48.0); HEMOGLOBIN. 14.1 g/dL (12.0-16.0); LYMPHOCYTES % 17.7 % (20.0-50.0); MEAN CORPUSCULAR HEMOGLOBIN 32.4 pg (28.0-32.0); MEAN CORPUSCULAR VOLUME 95.7 fL (81.0-99.0); MEAN PLATELET VOLUME 10.2 fl (7.4-10.4); MONOCYTES % 6.7 % (2.0-8.0); NEUTROPHILS % 72.6 % (40.0-76.0); PLATELET 215 x1000/uL (130-400); RED BLOOD CELL COUNT 4.36 mill/uL (4.2-5.4); RED CELL DISTRIBUTION WIDTH 12.9 % (11.6-14.6)
[2021-02-17 07:48] LABS: CLARITY URINE CLEAR (CLEAR); COLOR URINE YELLOW (YELLOW); KETONES URINE NEGATIVE (NEGATIVE); LEUKOCYTE ESTERASE URINE NEGATIVE (NEGATIVE); NITRITE URINE NEGATIVE (NEGATIVE); OCCULT BLOOD URINE NEGATIVE (NEGATIVE); PH URINE 5.5 (4.5-8.0); PROTEIN URINE NEGATIVE (NEGATIVE); SPECIFIC GRAVITY URINE 1.024 (1.005-1.030); UROBILINOGEN URINE 0.2 E.U./dL (0.2-1.0)
[2021-02-17 07:56] LABS: CHLORIDE 107 mEq/L (98-107)
[2021-02-17 08:07] LABS: LDL CHOLESTEROL 111 mg/dL (5-100)
[2021-02-17 08:09] LABS: HDL CHOLESTEROL 69 mg/dL (40-59)
== END | disposition home or self-care (01) ==
LOC: LAB 07:17
PROVIDERS: ATTEND Family Medicine Adult Medicine
DX: Z00.01 Encounter for general adult medical examination with abnormal findings (principal)
CPT/HCPCS: 36415; 80053; 80061; 81003; 82306; 83036; 84443; 85025

== ENCOUNTER → 2021-04-02 | Outpatient (CLI) | payer BC | END | disposition home or self-care (01) | LOC: LAB 07:33 | PROVIDERS: ATTEND Family Medicine Adult Medicine | DX: U07.1 COVID-19 (principal) | CPT/HCPCS: 87426 ==